=== PATIENT | female | born 1950 | race Caucasian/White ===

== ENCOUNTER 2019-10-13 10:57 | Inpatient (IN) | payer OTHER ==
[~2019-10-13] VITALS: Ht 149.9 cm; Wt 84.4 kg
--- NOTE | 2019-10-13 10:57 | NUR ---
Placed in room 2 . Placed on front desk monitor, blood pressure machine and pulse oximeter. To gown for exam. Side rails up. Report given to GENNY Leone.
--- NOTE | 2019-10-13 10:57 | NUR ---
EKG done and given to
--- NOTE | 2019-10-13 10:58 | NUR ---
Pt walked in to ER w/ c/o chest pain since this morning, 10/13 pain. V/S stable, afebrile. Resting in bed, no distress noted. Will continue to monitor
--- NOTE | 2019-10-13 10:59 | NUR ---
ER Dr. Wang at bedside examining patient.
[2019-10-13 11:00] VITALS: BP_SYST 167
--- NOTE | 2019-10-13 11:00 | NUR ---
Blood cultures drawn x2, one set @ 1050 second set @ 1100.
--- NOTE | 2019-10-13 11:00 | NUR ---
# 20 gauge angiocath placed to LAC. Use of asceptic technique. Opsite placed over site. Blood return noted. Blood for lab drawn from site. Flushed with 10 cc of normal saline. No evidence of infiltration noted. Patient tolerated well.
[2019-10-13] MEDS ORDERED: NACL 0.9% 1,000 ML IV ONE (11:09)
[2019-10-13] MEDS ORDERED: ONDANSETRON HCL 4 MG/2 ML VIAL IVP ONE (11:15)
[2019-10-13] MEDS ORDERED: MORPHINE 2 MG/ML INJ. SYRINGE IVP ONE (11:15)
[2019-10-13] MEDS ORDERED: CLOPIDOGREL BISULFATE 75 MG TABLET PO ONE (11:15)
[2019-10-13] MEDS ORDERED: ASPIRIN 81 MG TAB.CHEW PO ONE (11:15)
[2019-10-13 11:20] LABS: BASOPHILS # (AUTO) 0.1 K/uL (0.0-0.2); BASOPHILS % (AUTO) 0.7 % (0.0-2.0); EOSINOPHILS # (AUTO) 0.1 K/uL (0.0-0.4); EOSINOPHILS % (AUTO) 0.7 % (0.0-4.0); HEMATOCRIT 41.5 % (36-48); HEMOGLOBIN 13.8 g/dL (12.0-16.0); LYMPHOCYTES # (AUTO) 3.8 K/uL (1.0-5.5); LYMPHOCYTES % (AUTO) 20.5 % (20.5-51.5); MEAN CORPUSCULAR HEMOGLOBIN 29 pg (27-31); MEAN CORPUSCULAR HGB CONC 33 % (32-36); MEAN CORPUSCULAR VOLUME 86 fL (79.0-98.0); MONOCYTES # (AUTO) 1.8 K/uL (0.0-1.0); MONOCYTES % (AUTO) 9.5 % (1.7-9.3); NEUTROPHILS # (AUTO) 12.8 K/uL (1.8-7.7); NEUTROPHILS % (AUTO) 68.6 % (40.0-70.0); PLATELET COUNT (AUTO) 631 K/uL (130-430); RED BLOOD CELL COUNT(AUTO) 4.83 MIL/uL (4.2-6.2); RED CELL DISTRIBUTION WIDTH 14.9 % (9.0-15.0); WHITE BLOOD COUNT (AUTO) 18.7 K/uL (4.8-10.8)
--- NOTE | 2019-10-13 11:29 | NUR ---
1L NS bolus infusing as ordered.
[2019-10-13] MEDS ORDERED: NITROGLYCERIN 0.4 MG TAB.SUBL SL ONE (11:30)
--- NOTE | 2019-10-13 11:30 | NUR ---
Plavix, ASA, and zofran given as ordered. Pt refused morphine at this time
[2019-10-13 11:40] LABS: PROTHROMBIN TIME 9.8 SECS (9.5-12.5)
[2019-10-13 11:43] LABS: CALCIUM 8.8 mg/dL (8.4-11.0); CREATININE 0.95 mg/dL (0.55-1.30)
[2019-10-13 11:47] LABS: ALBUMIN 3.9 g/dL (3.4-4.8); TOTAL BILIRUBIN 0.6 mg/dL (0.0-1.0)
--- NOTE | 2019-10-13 12:20 | NUR ---
Urine collected for urine sample, taken to lab
[2019-10-13 12:27] LABS: BILIRUBIN,URINE NEGATIVE (NEGATIVE); BLOOD, URINE NEGATIVE (NEGATIVE); CLARITY/URINE CLEAR (CLEAR); COLOR,URINE YELLOW (YELLOW); GLUCOSE,URINE NEGATIVE (NEGATIVE); KETONES,URINE NEGATIVE (NEGATIVE); LEUKOCYTE ESTERASE ,URINE NEGATIVE (NEGATIVE); NITRITE, URINE NEGATIVE (NEGATIVE); PH,URINE 5.5 (5.0-8.0); PROTEIN URINE NEGATIVE (NEGATIVE); UROBILINOGEN,URINE 0.2 (0.2-1.0)
--- NOTE | 2019-10-13 12:45 | NUR ---
Pt belongings list completed
--- NOTE | 2019-10-13 12:50 | NUR ---
Pt's notified of admission. Spoke with Horacio.
--- NOTE | 2019-10-13 12:54 | NUR ---
Med reconciliation completed
[2019-10-13] MEDS ORDERED: VALS1TAB80 PO (12:58)
[2019-10-13] MEDS ORDERED: OMEP20CA11 PO (12:58)
--- NOTE | 2019-10-13 13:06 | NUR ---
pt will be admitted under the care of Dr. Mehta.
--- NOTE | 2019-10-13 13:10 | NUR ---
Called Med Surg for a bed assignment, spoke w/ Suzanne. Call for bed assignment
[2019-10-13] MEDS ORDERED: MORPHINE SULFATE 10 MG/ML VIAL IVP PRN (13:15)
--- NOTE | 2019-10-13 13:26 | NUR ---
Dr. Oliveira called per Dr. Mehta's request. Currently waiting for a call back
[2019-10-13] MEDS ORDERED: cefTRIAXone 1 GM IVPB PREMIX 50 ML IV ONE (13:30)
--- NOTE | 2019-10-13 13:50 | NUR ---
Called Med Surg again for bed assignment. Spoke w/ Ross, still waiting for tele bed.
--- NOTE | 2019-10-13 14:05 | NUR ---
Code status obtained and signed by physician. Placed in chart
--- NOTE | 2019-10-13 14:10 | NUR ---
Patient will be admitted to care of Dr. Bryan. Admitted to Telemetry unit. Will go to room 103B. Belongings list completed. Complete and up to date summary report printed. SBAR report to be given at bedside with opportunity for questions. IV patent and flushed.
--- NOTE | 2019-10-13 14:28 | NUR ---
ADMISSION NOTE Received patient from ER via tristan, received report from JENA ROYAL. Patient admitted with diagnosis of CHEST PAIN TO R/O ACUTE CORONARY SYNDROME. Patient oriented to hospital routine, call light, toileting and safety-patient verbalized understanding.
[2019-10-13] MEDS ORDERED: NITROGLYCERIN 0.4 MG TAB.SUBL SL PRN (14:30)
[2019-10-13] MEDS ORDERED: ONDANSETRON HCL 4 MG/2 ML VIAL IVP PRN (14:30)
--- NOTE | 2019-10-13 14:39 | NUR ---
Pt admitted under the care of Dr. Mehta
--- NOTE | 2019-10-13 14:40 | NUR ---
INITIAL NOTE: RECEIVED PATIENT FROM ER. PATIENT IS AWAKE AND ALERT x4 LAYING DOWN IN BED. PATIENT STATES SHE IS HAVING CHEST PAIN 5/10 BUT DOES NOT WANT ANY PAIN MEDICATION. PATIENT WAS INFORMED TO LET ME KNOW WHEN THE PAIN BECOMES TOO MUCH TO HANDLE. PATIENT IS TOLERATING OXYGEN ON ROOM AIR WITH NO SIGNS OF DISTRESS OR SHORTNESS OF BREATH NOTED. IV SITE IS PATENT WITH NO SIGNS OF INFILTRATION NOTED. PATIENT IN STABLE CONDITION. SAFETY, FALL AND ASPIRATION PRECAUTIONS ARE IN PLACE. BED LOCKED IN LOWEST POSITION WITH CALL LIGHT IN REACH. WILL CONTINUE TO MONITOR PATIENT FOR ANY CHANGES.
[2019-10-13 14:42] VITALS: BP_SYST 151
[2019-10-13] MEDS ORDERED: LEVOFLOXACIN 500 MG/D5W 100 ML IV SCH (15:00)
[2019-10-13] MEDS ORDERED: NITROGLYCERIN 0.2 MG/HR PATCH.TD24 TD ONE (15:00)
[2019-10-13] MEDS ORDERED: LOSARTAN POTASSIUM 50 MG TABLET (COZAAR) PO ONE (15:00)
[2019-10-13] MEDS ORDERED: POTASSIUM CHLORIDE 20 MEQ/PKT PACKET PO ONE (15:00)
[2019-10-13] MEDS ORDERED: ENOXAPARIN SODIUM 40 MG/0.4 ML SYRINGE SUBCUT ONE (15:00)
[2019-10-13] MEDS: NACL 0.9% 1,000 ML IV SCH (15:04)
[2019-10-13 15:29] LABS: CHOLESTEROL 192 mg/dL (<200); HDL CHOLESTEROL 59 mg/dL (>55); LDL CHOLESTEROL 104 mg/dL (<100); TRIGLYCERIDES 170 mg/dL (30-150)
[2019-10-13] MEDS ORDERED: METOPROLOL TARTRATE 25 MG TABLET PO ONE (15:30)
[2019-10-13] MEDS ORDERED: FAMOTIDINE 20 MG TABLET PO ONE (15:30)
[2019-10-13 15:39] LABS: C-REACTIVE PROTEIN QUANT < 0.2 mg/dL (0-0.5)
[2019-10-13 16:30] VITALS: BP_SYST 139
--- NOTE | 2019-10-13 16:36 | NUR ---
RN ROUNDS: PATIENT IS AWAKE AND ALERT x4 LAYING DOWN IN BED. PATIENT DENIES ANY PAIN AT THE MOMENT. PATIENT IS TOLERATING OXYGEN ON ROOM AIR WITH NO SIGNS OF DISTRESS OR SHORTNESS OF BREATH NOTED. IV SITE IS PATENT WITH NO SIGNS OF INFILTRATION NOTED. PATIENT IN STABLE CONDITION. WILL CONTINUE TO MONITOR PATIENT FOR ANY CHANGES.
--- NOTE | 2019-10-13 18:34 | NUR ---
CLOSING NOTES: PATIENT IS AWAKE AND ALERT x4 SITTING UP IN BED EATING DINNER. PATIENT STATES SHE IS FEELS LIKE SHE HAS SOMETHING IN HER THROAT. PATIENT STATED IT STARTED ONCE SHE STARTED EATING. PATIENT WAS EDUCATED ON CHEWING SLOWLY AND PRECISE. PATIENT IS TOLERATING OXYGEN ON ROOM AIR WITH NO SIGNS OF DISTRESS OR SHORTNESS OF BREATH NOTED. IV SITE IS PATENT WITH NO SIGNS OF INFILTRATION NOTED AND RUNNING FLUIDS ORDERED. PATIENT IN STABLE CONDITION. SAFETY, FALL AND ASPIRATION PRECAUTIONS REMAINED IN PLACE THROUGHOUT THE SHIFT. BED LOCKED IN LOWEST POSITION WITH CALL LIGHT IN REACH. WILL ENDORSE PATIENT CARE TO ONCOMING ELECTRIC SHIPYARD OPERATOR NURSE.
--- NOTE | 2019-10-13 19:25 | NUR ---
RECEIVED BEDSIDE REPORT FROM AM GENNY DODSON. Pt AAOX4, PLEASANT DEMEANOR, IVF INFUSING VIA RFA, 20G IV. NAD NOTED.
[2019-10-13 20:25] VITALS: BP_SYST 108
[2019-10-13] MEDS: METOPROLOL TARTRATE 25 MG TABLET PO SCH (20:41)
[2019-10-13] MEDS: FAMOTIDINE 20 MG TABLET PO SCH (20:41)
--- NOTE | 2019-10-13 20:49 | NUR ---
MED PASS DONE. PT W/ C/O NAUSEA, ZOFRAN 4 MG IVP GIVEN W/ MEDS. FAMILY BROUGHT THE Pt PHONE, AND A BACK-UP ANNOUNCER BANK, PLACED AT BEDSIDE, PT TALKING TO HER FAM ON THE PHONE.
--- NOTE | 2019-10-13 23:12 | NUR ---
ON ROUNDS, Pt ASLEEP W/ EASY AROUSAL, STATES N/V RELIEVED.
[2019-10-13] MEDS: ACETAMINOPHEN 325 MG TABLET PO PRN (23:48)
--- NOTE | 2019-10-13 23:50 | NUR ---
Pt W/ C/O FRONTAL H/A, 10/13. TYLENOL 2 TABS PO GIVEN FOR H/A.
[2019-10-14 00:47] VITALS: BP_SYST 108
--- NOTE | 2019-10-14 03:00 | NUR ---
ON ROUNDS Pt ASLEEP. OOB TO BRP, W/ STEADY GAIT. NO C/O PAIN OR DISCOMFORT. NAD NOTED.
[2019-10-14] MEDS: NACL 0.9% 1,000 ML IV SCH (03:17)
[2019-10-14 07:01] LABS: BASOPHILS # (AUTO) 0.1 K/uL (0.0-0.2); BASOPHILS % (AUTO) 0.6 % (0.0-2.0); EOSINOPHILS # (AUTO) 0.3 K/uL (0.0-0.4); EOSINOPHILS % (AUTO) 2.6 % (0.0-4.0); HEMATOCRIT 34.8 % (36-48); HEMOGLOBIN 11.6 g/dL (12.0-16.0); LYMPHOCYTES # (AUTO) 3.8 K/uL (1.0-5.5); LYMPHOCYTES % (AUTO) 29.8 % (20.5-51.5); MEAN CORPUSCULAR HEMOGLOBIN 29 pg (27-31); MEAN CORPUSCULAR HGB CONC 33 % (32-36); MEAN CORPUSCULAR VOLUME 87 fL (79.0-98.0); MONOCYTES # (AUTO) 1.4 K/uL (0.0-1.0); MONOCYTES % (AUTO) 10.7 % (1.7-9.3); NEUTROPHILS # (AUTO) 7.1 K/uL (1.8-7.7); NEUTROPHILS % (AUTO) 56.3 % (40.0-70.0); PLATELET COUNT (AUTO) 487 K/uL (130-430); RED BLOOD CELL COUNT(AUTO) 4.02 MIL/uL (4.2-6.2); RED CELL DISTRIBUTION WIDTH 14.9 % (9.0-15.0); WHITE BLOOD COUNT (AUTO) 12.7 K/uL (4.8-10.8)
--- NOTE | 2019-10-14 07:10 | NUR ---
PT ASLEEP EASY AROUSAL REPORT TO WEST MICHEL RN
[2019-10-14 07:26] LABS: ALANINE AMINOTRANSFERASE 27 U/L (12-78); ALBUMIN 2.7 g/dL (3.4-4.8); ANION GAP 4 (5-15); ASPARTATE AMINOTRANSFERASE 15 U/L (10-37); CALCIUM 7.6 mg/dL (8.4-11.0); CHLORIDE 107 mmol/L (98-107); CREATININE 0.94 mg/dL (0.55-1.30); GLUCOSE 106 mg/dL (70-99); POTASSIUM 3.5 mmol/L (3.5-5.1); SODIUM SERUM 141 mmol/L (136-145); TOTAL BILIRUBIN 0.8 mg/dL (0.0-1.0); UREA NITROGEN, BLOOD 17 mg/dL (8-21)
--- NOTE | 2019-10-14 07:30 | NUR ---
OPENING NOTES: RECEIVED PATIENT FROM BUSINESS BROKER NURSE. PATIENT IS AWAKE AND ALERT x4 LAYING DOWN IN BED. PATIENT DENIES ANY PAIN AT THE MOMENT. PATIENT DOES STATE THAT SHE HAS A HEADACHE. INFORMED PATIENT THAT I WILL BRING HER TYLENOL WITH HER MEDICATIONS. PATIENT AGREED. PATIENT IS TOLERATING OXYGEN ON ROOM AIR WITH NO SIGNS OF DISTRESS OR SHORTNESS OF BREATH NOTED. IV SITE IS PATENT WITH NO SIGNS OF INFILTRATION NOTED. PATIENT IN STABLE CONDITION. SAFETY, FALL AND ASPIRATION PRECAUTIONS ARE IN PLACE. BED LOCKED IN LOWEST POSITION WITH CALL LIGHT IN REACH. WILL CONTINUE TO MONITOR PATIENT FOR ANY CHANGES.
[2019-10-14 07:38] LABS: GFR AFRICAN AMERICAN 76 mL/min (>90)
[2019-10-14 08:00] VITALS: BP_SYST 117
[2019-10-14] MEDS: FAMOTIDINE 20 MG TABLET PO SCH (08:33)
[2019-10-14] MEDS: ACETAMINOPHEN 325 MG TABLET PO PRN (08:33)
[2019-10-14] MEDS: METOPROLOL TARTRATE 25 MG TABLET PO SCH (08:34)
[2019-10-14] MEDS ORDERED: NITROGLYCERIN 0.2 MG/HR PATCH.TD24 TD SCH (09:00)
[2019-10-14] MEDS ORDERED: ENOXAPARIN SODIUM 40 MG/0.4 ML SYRINGE SUBCUT SCH (09:00)
[2019-10-14] MEDS ORDERED: ASPIRIN 325 MG TABLET PO SCH (09:00)
[2019-10-14] MEDS ORDERED: LOSARTAN POTASSIUM 50 MG TABLET (COZAAR) PO SCH (09:00)
[2019-10-14] MEDS ORDERED: LEVO250T58 PO (09:25)
[2019-10-14] MEDS ORDERED: ASA81 PO (09:32)
--- NOTE | 2019-10-14 10:20 | NUR ---
RN ROUNDS: PATIENT IS AWAKE AND ALERT x4 SITTING AT THE EDGE OF THE BED. PATIENT DENIES ANY PAIN AT THE MOMENT. NO SIGNS OF DISTRESS OR SHORTNESS OF BREATH NOTED. PATIENT IN STABLE CONDITION. WILL CONTINUE TO MONITOR PATIENT FOR ANY CHANGES.
[2019-10-14 11:11] VITALS: BP_SYST 117
--- NOTE | 2019-10-14 12:30 | NUR ---
D/C Patient: Patient given medication reconciliation form and D/C instructions. Exit Care provided. Patient verbalized understanding. MD discussed with patient the results and treatment provided. Ambulatory with steady gait for discharge to home. Patient in stable condition, ID band removed. IV catheter removed, intact and dressing applied, no active bleeding. Rx of Aspirin and Levaquin sent to preferred pharmacy. Patient educated on pain management. All belongings sent with patient.
--- NOTE | 2019-10-16 12:17 | NUR ---
Discharge Follow Up Phone Call Phoned patient, . Patient stated she was improving but was still having headaches. She has a phone follow up appointment with her PCP, Dr Gonzalez, tomorrow, 10/17/19. Advised her to discuss follow up with GI and Cardio as recommended by MDs. Also advised that she read through the discharge paperwork and write down any questions or concerns she has prior to the call. Patient filled her prescriptions and is taking her medications as directed. No other questions or concerns.
== END 2019-10-14 12:30 | disposition home or self-care (01) | DRG 392 ==
LOC: SED 10:57 → STU 13:07
PROVIDERS: ADMIT Internal Medicine; ATTEND Internal Medicine
DX: K21.9 Gastro-esophageal reflux disease without esophagitis (principal); N39.0 Urinary tract infection, site not specified; R07.89 Other chest pain; E78.5 Hyperlipidemia, unspecified; I10 Essential (primary) hypertension; Z79.82 Long term (current) use of aspirin; Z88.0 Allergy status to penicillin; Z79.899 Other long term (current) drug therapy
CPT/HCPCS: 36415; 71045; 80053; 80061; 81003; 82150-TC; 82550-TC; 83605; 83690-TC; 83880; 84484; 85025; 85610-TC; 85651-TC; 85730-TC; 86140; 87040-TC; 93005; 93306; 96361; 96365; 96375; 99285; G0378; J0696; J1650; J1956; J2270; J2405; J7030